=== PATIENT | female | born 1930 | race Caucasian/White ===

== ENCOUNTER 2016-04-04 00:02 | Inpatient (IN) | payer SELFPAY ==
--- NOTE | 2016-07-19 11:13 | DEATH SUMMARY ---
DATE OF ADMISSION: 2013 DATE OF : 07/13/16 ATTENDING PHYSICIAN: Gregory Joseph MD DIAGNOSES 1. Cerebrovascular accident as a complication of aortic valve replacement. 2. Aortic stenosis, status post redo AVR with a [employer] Kirit mechanical valve, following a thrombosed aortic valve with replacement due to Coumadin noncompliance. 3. Congestive heart failure. 4. Cardiomyopathy. 5. Hyperlipidemia. 6. Hypertension. 7. Left bundle branch block. 8. Atrial fibrillation, on aspirin. 9. Frontotemporal dementia with associated labile emotions. 10. Global geriatric decline. 11. Failure to thrive with associated weight loss. HISTORY OF PRESENT ILLNESS: This was an 85-year-old female with a history of aortic stenosis, first diagnosed in 2000, for which she had an aortic valve replacement with a mechanical [employer] Kirit Valve on 03/03/10. Patient has atrial fibrillation and congestive heart failure. Prior to admission, patient was noted to have shortness of breath and congestive heart failure. 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 Kirit valve. 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 The patient was initially admitted to [facility] for further physical therapy, occupational therapy, speech therapy and rehabilitation. Eventually the patient was transitioned to Hospice care; however, she began to plateau with respect to deterioration and poor status and was taken off Hospice 09/2013. Please see previously dictated history and physical for further details. PPLC COURSE: Since her last annual history and physical, patient was felt that she continued to have a very poor prognosis and patient was only provided supportive and comfort care. Of interest, she had left hemineglect. Patient has had issues with loss of appetite with decreased calorie intake and associated weight loss. Two days ago, patient did have a fall out of bed resulting in some left facial and arm bruising. Since then, patient has been less responsive. We had planned to place the patient on Hospice as of today, in that she was becoming hypotensive. Differential diagnosis include cardiopulmonary issues, myocardial infarction, cerebrovascular accident, sepsis, dehydration, progression of dementia, etc. Irregardless, her status progressed rapidly, and she on 07/13/16 at 16:10. Family was notified. cc: Dr. Rutledge, Dr. Boyd, Dr. Sharyn DOUGHERTY
== END 2016-07-13 16:10 | disposition expired | DRG 292 ==
LOC: PPLC 00:02
PROVIDERS: ADMIT Family Medicine; ATTEND Family Medicine
DX: I50.23 Acute on chronic systolic (congestive) heart failure (principal); I10 Essential (primary) hypertension; I44.7 Left bundle-branch block, unspecified; M50.320 Other cervical disc degeneration, mid-cervical region, unspecified level; E78.5 Hyperlipidemia, unspecified; I48.2 Chronic atrial fibrillation; I50.9 Heart failure, unspecified; Z85.820 Personal history of malignant melanoma of skin; I42.9 Cardiomyopathy, unspecified; K21.9 Gastro-esophageal reflux disease without esophagitis; H04.123 Dry eye syndrome of bilateral lacrimal glands; K59.00 Constipation, unspecified; Z79.82 Long term (current) use of aspirin; Z79.02 Long term (current) use of antithrombotics/antiplatelets; E88.09 Other disorders of plasma-protein metabolism, not elsewhere classified